=== PATIENT | female | born 1960 | race Two or more races ===

== ENCOUNTER 2022-10-13 08:16 | Outpatient (CLI) | payer MEDICAID | END 2022-10-13 23:59 | disposition home or self-care (01) | LOC: RT 08:16 | PROVIDERS: ATTEND Psychiatry & Neurology Neurology | DX: R94.2 Abnormal results of pulmonary function studies (principal); G12.21 Amyotrophic lateral sclerosis; J98.4 Other disorders of lung | CPT/HCPCS: 94010; 94729 ==